=== PATIENT | male | born 1970 | race Caucasian/White ===

== ENCOUNTER 2022-04-30 10:05 | Observation (INO) ==
[2022-04-30] MEDS ORDERED: NITROGLYCERIN 2% OINTMENT 30GM TUBE EXT ONE (10:33)
[2022-04-30] MEDS ORDERED: ASPIRIN 81 MG CHEW PO STA (10:33)
--- NOTE | 2022-04-30 10:37 | Emergency Department Note ---
Impression & Plan Unstable angina ED Provider Note Name: KAZ MARTINEZ Age: 51 Sex: M Arrives Via: Walk-In Informant: Patient ED Provider: Jaun Suazo MD Chief Complaint: Chest pain Impression: As per impressions above Medical Decision Making: Pleasant 51-year-old gentleman with a history of hypertension, hyperlipidemia, anxiety and CAD with previous stenting. He arrives with intermittent episodic right chest pain radiating to his right shoulder similar to previous ID. No associated exertional component or other symptoms. No concerning findings for PE or dissection at this time. EKG and troponin initially okay. He was given aspirin as well as nitro paste was placed. Discussed with hospitalist and cardiology and they will evaluate further for further management. Will defer heparin management to their team. Patient does deny any recent bleeding, bruising, headaches, epigastric pain. Prior Medical Record and Triage/Nursing Notes reviewed by Me Additional history obtained from chart Differentials:Cardiac ischemia, aortic dissection, pulmonary embolism, pneumothorax, pneumonia, pericarditis, myocarditis, esophageal rupture, GERD, cholecystitis, pancreatitis, musculoskeletal, as well as other pathologies. Vital Signs: reviewed and remarkable for no significant abnormalities Interventions: Aspirin 324 mg p.o., sublingual nitroglycerin Labs:Reviewed and remarkable for no significant abnormalities Imagin view chest x-ray no acute findings per my evaluation EKG:Per My Interpretation: Indication Chest pain: NSR 72 bpm, qtc 400. No Ectopy. No Ischemia. EKG available Cardiac/Tele Monitoring: Cardiac Monitoring: An Order was placed for continuous cardiac monitoring. The monitor shows a rate of 70 with a normal sinus rhythm. Consults:Dr Adeel SHIPMAN Hospitalist, Dr Jordan SHIPMAN Cardiology Plan: Disposition:Hospitalization. Condition: Good History of Present Illness: 51-year-old gentleman arrives for evaluation of chest pain. Patient notes last 3 days stuttering right upper chest discomfort. States it is pressure-like. Radiates to his right shoulder. No pain with movement. States initially it actually woke him from sleep. He took nitro and pain goes away. He had another episode this morning took nitro and the pain went away. He called his auto porter who advised to come to the ER. Patient notes he does get short of breath and some chest discomfort with exertion recently. He is usually quite active and does not have concerning symptoms. Denies any falls, trauma, injuries. Denies any syncope, nausea, vomiting, pal pitations, anna pain, back pain or other concerning signs or symptoms. He has had no leg swelling or calf pain. No history of DVT/PE. Prior to arrival he took 81 mg aspirin, lisinopril, nitro tab. Patient has a history of ID with multiple stents. Patient states this is not like his typical reflux symptoms. ROS: See above HPI for pertinent positives & negatives. A total of 10 systems reviewed and were otherwise negative. 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 EYES: No scleral icterus, unremarkable pupils. ENT: Mucous membranes moist, no nasal congestion. NECK: No masses appreciated, nomeningismus, trachea is midline. RESPIRATORY: No dyspnea. Clear to auscultation and equal bilaterally. No wheeze, no rhonchi. CARDIOVASCULAR: Regular rate and rhythm.No murmurs, rubs, gallops appreciated. GASTROINTESTINAL: Abdomen soft, non-tender, no peritonitis.Bowel sounds positive.No masses appreciated. BACK: No midline tenderness, no CVA tenderness EXTREMITIES: Normal motion all extremities, no cyanosis, no edema. NEUROLOGIC: Alert and oriented, no acute motor or sensory deficits, no focal weakness, cranial nerves grossly intact. SKIN: No rash, no jaundice, no diaphoresis. PSYCH: Appropriate GCS: 15 ED Course: Times/Reassessments: Is feeling better after sublingual nitro. Agreeable to hospitalization Jaun Suazo MD Past Med/Surg History Medical History Angina pectoris Anxiety disorder Asthma without status asthmaticus Atherosclerotic heart disease of [place] coronary artery with other forms of angina pectoris Chest pain Gout Hyperlipidemia Indigestion Subsequent ST elevation (STEMI) myocardial infarction of inferior wall Surgical History History of cardiac cath History of orthopedic surgery Family History Father Suicide Mother Stroke Social History Smoking Status: Never smoker Tobacco Type: Smokeless Tobacco (Dip or Chew) Hx Alcohol Use: No Hx Substance Use: No Preferred Language: Polish Communication Ability: Effective Densitometer Reader Required: No Beliefs That Will Affect Care: None Current Living Situation: Spouse Other Information That Helps Us Care for You: No Feels Safe at Home: Yes Safety Concerns: Feels Safe At This Time Assistive Devices: Glasses Allergies Allergies Allergy/AdvReac Type Severity Reaction Status Date / Time No Known Allergies Allergy Verified 07/09/21 14:24 Home Meds Home Medications Medication Instructions Recorded Confirmed albuterol sulfate 90 mcg/actuation 2 puff inhalation Q4H PRN 12/11/20 07/09/21 aerosol inhaler lorazepam 0.5 mg tablet 0.5 mg PO BID PRN 12/11/20 07/09/21 nitroglycerin 0.4 mg sublingual 0.4 mg sublingual Q5M PRN 12/11/20 07/09/21 tablet tadalafil 10 mg tablet (Cialis) 10 mg PO DAILY PRN 12/11/20 12/12/20 venlafaxine 37.5 mg 37.5 mg PO DAILY 12/11/20 12/12/20 capsule,extended release 24 hr aspirin 81 mg tablet 81 mg PO DAILY 07/09/21 07/09/21 Previous Rx's Medication Instructions Recorded cetirizine 10 mg tablet 10 mg PO DAILY PRN allergy 07/09/21 symptoms #30 tabs clopidogrel 75 mg tablet 75 mg PO DAILY #90 tabs 07/09/21 isosorbide mononitrate 30 mg 30 mg PO DAILY #90 tabs 07/09/21 tablet,extended release 24 hr lisinopril 10 mg tablet 10 mg PO DAILY #90 tabs 07/09/21 rosuvastatin 20 mg tablet 20 mg PO DAILY #90 tabs 07/09/21 pantoprazole 40 mg tablet,delayed 40 mg PO DAILY #90 tabs 08/15/21 release Results & Data (ED) Vital Signs Vital Signs - 24 hr 04/30/22 10:09 04/30/22 10:25 04/30/22 10:50 Temperature 36.6 C Temperature Source Temporal Artery Scan Pulse Rate 81 Pulse Rate [Apical] 76 71 Respiratory Rate 18 18 18 Respiratory Effort / Characteristics Non-Labored Non-Labored Spontaneous Non-Labored Spontaneous Respiratory Depth Normal Normal Normal Blood Pressure 153/84 H Blood Pressure [Left Arm] 149/74 H 124/80 Blood Pressure Mean 107 Blood Pressure Mean [Left Arm] 99 94 Blood Pressure Position Sitting Pulse Oximetry 94 96 96 Oxygen Delivery Method Room Air Room Air Room Air Sepsis Recent Fever Within 48 Hours No Sepsis New/Unexplained Change in Mental Status No Sepsis Action Taken by Nursing No Action Required 04/30/22 12:05 Temperature Temperature Source Pulse Rate Pulse Rate [Apical] 68 Respiratory Rate 16 Respiratory Effort / Characteristics Respiratory Depth Blood Pressure Blood Pressure [Left Arm] 123/67 Blood Pressure Mean Blood Pressure Mean [Left Arm] 85 Blood Pressure Position Pulse Oximetry 95 Oxygen Delivery Method Sepsis Recent Fever Within 48 Hours Sepsis New/Unexplained Change in Mental Status Sepsis Action Taken by Nursing Laboratory Data Result diagrams: 04/30/22 10:24 04/30/22 10:24 Lab Results 04/30/22 04/30/22 04/30/22 Range/Units 10:24 10:24 12:50 WBC 7.43 (4.8-10.8) K/ul RBC 4.66 (4.63-6.08) M/uL Hgb 14.4 (14.0-18.0) g/dl Hct 41.8 (40.1-51.0) % MCV 89.7 (80.0-100.0) fL MCH 30.9 (25.0-34.0) pg MCHC 34.4 (32.0-36.0) g/dL RDW Std Deviation 42.8 (36.4-46.3) fL RDW Coeff of Neha 13.1 (11.5-14.5) % Plt Count 212 (130-400) K/uL MPV 10.1 (9.4-12.4) fL Immature Gran % (Auto) 0.5 % Neut % (Auto) 65.9 % Lymph % (Auto) 22.5 % Cocke % (Auto) 9.0 % Eos % (Auto) 1.6 % Baso % (Auto) 0.5 % Neut # (Auto) 4.89 (1.4-6.5) K/uL Lymph # (Auto) 1.67 (1.2-3.4) K/uL Cocke # (Auto) 0.67 (0.24-0.82) K/uL Eos # (Auto) 0.12 (0-0.50) K/uL Baso # (Auto) 0.04 (0-0.2) K/uL Immature Gran # (Auto) 0.04 H (0.00-0.02) K/uL Sodium 140 (136-145) mmol/L Potassium 3.9 (3.5-5.1) mmol/L Chloride 105 (98-107) mmol/L Carbon Dioxide 27 (21-32) mmol/L Anion Gap 8 (3-11) BUN 13 (6-23) mg/dl Creatinine 0.75 (0.6-1.4) mg/dl Est Cr Clr Drug Dosing 137.8 ml/min Est GFR ( Amer) 121.4 ml/min Est GFR (Non-Af Amer) 104.7 ml/min BUN/Creatinine Ratio 17.3 (10-20) Glucose 132 H (70-99(Fasting)) mg/dl Calcium 8.9 (8.5-10.1) mg/dl Total Bilirubin 0.6 (0.2-1.0) mg/dl Direct Bilirubin 0.1 (0-0.2) mg/dl AST 11 L (13-39) U/L ALT 15 (7-52) U/L Alkaline Phosphatase 60 (34-104) U/L Troponin I High Sens 7.0 (0-20) pg/ml Total Protein 6.4 (6.0-8.3) gm/dl Albumin 3.8 (3.4-5.0) gm/dl Lipase 23 (11-82) U/L SARS-CoV-2, RNA, NAAT NEGATIVE (NEGATIVE) Administered Medications Discontinued Medications Aspirin (Aspirin 81 Mg Chew) 324 mg PO NOW STA Stop: 04/30/22 10:34 Last Admin: 04/30/22 10:48 Dose: 324 mg Documented By: DON Nitroglycerin (Nitroglycerin 2% Ointment 30gm Tube) 1 inch EXT NOW ONE Stop: 04/30/22 10:34 Last Admin: 04/30/22 10:48 Dose: 1 inch Documented By: DON Imaging Data Radiologist's Impression: Chest X-Ray 04/30/22 10:33 SINGLE VIEW CHEST CLINICAL HISTORY: Atypical chest pain. FINDINGS: An AP, portable, upright chest radiograph is obtained. No prior studies are available for comparison at the time of dictation. The cardiomediastinal silhouette is top normal for projection. Peribronchial thick ening is observed. Mild atelectasis is noted at the lung bases. No focal airspace consolidation or large pleural effusion is identified. No pneumothorax is seen. The bony thorax is grossly intact. IMPRESSION: 1. Peribronchial thickening suggest bronchitis/reactive airway disease. Clinical correlation will be required. 2. No focal airspace consolidation or large pleural effusion is identified. ACT 112: Negative or not required by law. Electronically signed by: Basil Rivers M.D. 04/30/2022 10:52 AM Discharge Plan Visit Data Chief Complaint: Chest Pain Stated Complaint: CHEST PAINS ED Provider: Jaun Suazo Discharge Problem: Unstable angina Patient Disposition: Admitted As Inpatient Discharge Instructions Interventions: ED Discharge Assessment Last Done: 04/30/22 15:08
--- NOTE | 2022-04-30 10:53 | XRay Report ---
SINGLE VIEW CHEST CLINICAL HISTORY: Atypical chest pain. FINDINGS: An AP, portable, upright chest radiograph is obtained. No prior studies are available for c omparison at the time of dictation. The cardiomediastinal silhouette is top normal for projection. Pe ribronchial thickening is observed. Mild atelectasis is noted at the lung bases. No focal airspace co nsolidation or large pleural effusion is identified. No pneumothorax is seen. The bony thorax is pooja sly intact. IMPRESSION: 1. Peribronchial thickening suggest bronchitis/reactive airway disease. Clinical correlation will be required. 2. No focal airspace consolidation or large pleural effusion is identified. ACT 112: Negative or not required by law. Electronically signed by: Basil Rivers M.D. 04/30/2022 10:52 AM
[2022-04-30 10:55] LABS: Basophils # (auto) 0.04 K/uL (0-0.2); Basophils % (auto) 0.5 %; Eosinophils # (auto) 0.12 K/uL (0-0.50); Eosinophils % (auto) 1.6 %; Hematocrit (blood only) 41.8 % (40.1-51.0); Hemoglobin 14.4 g/dl (14.0-18.0); Immature Granulocytes # (auto) 0.04 K/uL (0.00-0.02); Immature Granulocytes % (auto) 0.5 %; Lymphocytes # (auto) 1.67 K/uL (1.2-3.4); Lymphocytes % (auto) 22.5 %; Mean Corpuscular Hemoglobin 30.9 pg (25.0-34.0); Mean Corpuscular Hgb Conc 34.4 g/dL (32.0-36.0); Mean Corpuscular Volume 89.7 fL (80.0-100.0); Mean Platelet Volume 10.1 fL (9.4-12.4); Monocytes # (auto) 0.67 K/uL (0.24-0.82); Neutrophils # (auto) 4.89 K/uL (1.4-6.5); Neutrophils % (auto) 65.9 %; Platelet Count 212 K/uL (130-400); RDW Coefficient of Variation 13.1 % (11.5-14.5); RDW Standard Deviation 42.8 fL (36.4-46.3); Red Blood Count 4.66 M/uL (4.63-6.08); White Blood Count 7.43 K/ul (4.8-10.8)
[2022-04-30 11:15] LABS: Albumin Level 3.8 gm/dl (3.4-5.0); BUN Creatinine Ratio 17.3 (10-20); Bilirubin Direct 0.1 mg/dl (0-0.2); Bilirubin,Total 0.6 mg/dl (0.2-1.0); Calcium 8.9 mg/dl (8.5-10.1); Creatinine Clr Calc Pharmacy 137.8 ml/min; Est GFR (African American) 121.4 ml/min; Est GFR (Non-African American) 104.7 ml/min; Potassium 3.9 mmol/L (3.5-5.1); Total Protein 6.4 gm/dl (6.0-8.3)
[2022-04-30] MEDS ORDERED: LORazepam 0.5 MG TAB PO PRN (13:05)
[2022-04-30] MEDS ORDERED: ALBUTEROL HFA 8 GM INHALER INH PRN (13:05)
[2022-04-30] MEDS ORDERED: CETIRIZINE HCL 10 MG TABLET PO PRN (13:05)
--- NOTE | 2022-04-30 13:28 | History & Physical Report ---
Date of Service April 30, 2022 Assessment & Plan (1) Unstable angina: Plan: Unstable angina in a 51 yo male with CADPlaced on heparin drip. consulted cardio Plan for cardiac cath in AM Patient will be NPO after midnight (2) Chest pain: Plan: as above. (3) Hypercholesterolemia: Plan: resume home meds: rosuvastatin (4) CAD (coronary artery disease): Plan: resume home meds: plavix, asa (5) Hypertension: Plan: resume lisinopril (6) Anxiety disorder: Plan: resume home meds History of Present Illness Chief Complaint: chest pain Primary Care Provider: Navin Winter PA-C This is a pleasant 51 yo male with PMH of CAD with stents placed back in 2017, HTN, Hyperlipidemia. Patient reports having chest pain intermittently the past 2 nights. Chest pain was left sided, pressure like in nature non radiating. Occurred at rest and improved with Nitro Prior to this patient has been having intermittent SOB on exertion, that has been gradually worsening. Patient states that this past week he was cutting firewood, and this made him lose his breath (which isn't normal for him). Today, walking to the care made him SOB. GIven his symptoms, he called his cariodlogist, Dr. Mahajan who recommmended him to go to ER Allergies Allergy/AdvReac Type Severity Reaction Status Date / Time No Known Allergies Allergy Verified 07/09/21 14:24 Home Medications Medication Instructions Recorded Confirmed Type albuterol sulfate 90 mcg/actuation 2 puff inhalation Q4H PRN 12/11/20 07/09/21 History aerosol inhaler lorazepam 0.5 mg tablet 0.5 mg PO BID PRN 12/11/20 07/09/21 History nitroglycerin 0.4 mg sublingual 0.4 mg sublingual Q5M PRN 12/11/20 07/09/21 History tablet tadalafil 10 mg tablet (Cialis) 10 mg PO DAILY PRN 12/11/20 12/12/20 History venlafaxine 37.5 mg 37.5 mg PO DAILY 12/11/20 12/12/20 History capsule,extended release 24 hr aspirin 81 mg tablet 81 mg PO DAILY 07/09/21 07/09/21 History cetirizine 10 mg tablet 10 mg PO DAILY PRN allergy 07/09/21 07/09/21 Rx symptoms #30 tabs clopidogrel 75 mg tablet 75 mg PO DAILY #90 tabs 07/09/21 07/09/21 Rx isosorbide mononitrate 30 mg 30 mg PO DAILY #90 tabs 07/09/21 07/09/21 Rx tablet,extended release 24 hr lisinopril 10 mg tablet 10 mg PO DAILY #90 tabs 07/09/21 07/09/21 Rx rosuvastatin 20 mg tablet 20 mg PO DAILY #90 tabs 07/09/21 07/09/21 Rx pantoprazole 40 mg tablet,delayed 40 mg PO DAILY #90 tabs 08/15/21 Rx release Past Med/Surg History Medical History Angina pectoris Anxiety disorder Asthma without status asthmaticus Atherosclerotic heart disease of [place] coronary artery with other forms of angina pectoris Chest pain Gout Hyperlipidemia Indigestion Subsequent ST elevation (STEMI) myocardial infarction of inferior wall Surgical History History of cardiac cath History of orthopedic surgery Family History Father Suicide Mother Stroke Social History Smoking Status: Never smoker Tobacco Type: Smokeless Tobacco (Dip or Chew) Hx Alcohol Use: No Hx Substance Use: No Preferred Language: Samoan Communication Ability: Effective Postal Transportation Clerk Required: No Beliefs That Will Affect Care: None Current Living Situation: Spouse Other Information That Helps Us Care for You: No Feels Safe at Home: Yes Safety Concerns: Feels Safe At This Time Assistive Devices: Glasses Review of Systems Constitutional: no fever and no body aches Eyes: no blind spots and no diplopia Ear, Nose, Mouth, Throat: no ear pain Respiratory: no cough Cardiovascular: no chest pain Gastrointestinal: no abdominal pain Genitourinary: no dysuria Musculoskeletal: no back pain Integumentary: no acne Neurologic: no gait abnormality Psychiatric: no behavioral changes Endocrine: + fatigue Hematologic / Lymphatic: no easy bleeding Allergy / Immunological: no GI upset with certain foods Physical Exam Constitutional: WD/WN, vitals as above Eyes: PERRL, conjunctivae normal, anicteric sclerae ENMT: external ear and nose normal, oropharynx normal Neck: trachea midline, no thyromegaly Respiratory: normal respiratory effort, lungs clear to auscultation Cardiovascular: RRR, no murmur, no edema Gastrointestinal (Abdomen): normal bowel sounds, soft, nontender, no hepatosplenomegaly Musculoskeletal: tenderness to palpation over anrerior right shoulder. Pain on abduction. Neurologic: PERRL, EOMI, accommodation nl, no face palsy, no dysarthria Psychiatric: A+Ox3, euthymic affect Results & Data Results & Data ([facility]) Vital Signs (Past 12 Hours) Vital Signs Temp Pulse Pulse Resp BP BP Pulse Ox 04/30/22 12:05 68 16 123/67 95 04/30/22 10:50 71 18 124/80 96 04/30/22 10:25 76 18 149/74 H 96 04/30/22 10:09 36.6 C 81 18 153/84 H 94 O2 Del Method 04/30/22 12:05 04/30/22 10:50 Room Air 04/30/22 10:25 Room Air 04/30/22 10:09 Room Air PG Care Time/CCT Total # of Minutes Spent Total Time Spent with Patient: Total time spent is greater than 50% in coordination of care (as documented) at patient's floor/unit and/or counseling patient: Coding Level of Care Code INT OBSERVATION CARE 70M LVL 3 Diagnoses Unstable angina I20.0 Chest pain R07.9 Hypercholesterolemia E78.00 CAD (coronary artery disease) I25.10 Hypertension I10 Anxiety disorder F41.9
--- NOTE | 2022-04-30 15:24 | Cardiology Consultation ---
Date of Consultation April 30, 2022 Assessment & Plan (1) Chest pain: (2) Dyspnea on exertion: (3) CAD (coronary artery disease): (4) Stented coronary artery: (5) Hypertension: (6) Anxiety disorder: Plan 51-year-old man with known coronary artery disease presents with initially exertional symptoms now occurring at rest. Symptoms are of a nature similar to those he experienced several years ago at the time of an inferior infarct. Fortunately, his initial troponin and ECG are unremarkable and he is pain-free currently. Would presume crescendo angina/acute coronary syndrome at this point and continue aspirin and clopidogrel, and heparin overnight, add low-dose beta-bloc ker and continue lisinopril. Could use topical nitrates overnight. Obtain ECG with any recurrent chest pain. Plan for cardiac catheterization in the morning, sooner if recurrent symptoms with ECG changes. Continue proton pump inhibitor, although reflux with esophageal spasm include also response to nitroglycerin, given his exertional symptoms as well as progressive dyspnea, gastroesophageal reflux disease as etiology for chest pain is at this point a diagnosis of exclusion. Patient is followed by Dr. Mahajan, he will be rounding tomorrow morning. History of Present Illness Reason for Consultation: Chest pain Requesting Physician: Burton Denis MD Attending Physician: Burton Denis MD History of Present Illness 51-year-old man with CAD (details below), hypertension, dyslipidemia who was admitted with recurrent chest pain in a crescendo pattern. Patient had an inferior wall myocardial infarction 2016 and received drug- eluting stents in the RCA and LAD, repeat catheterization in 2019 showed patent stents and no occlusive disease. He had done well since, but over the past month or so has been noting left precordial chest heaviness when he performs heavy activities such as chopping wood. More recently, he began to experience the same character of left chest discomfort at rest, including awakening him from sleep this morning with moderate severity pain (5/10). He does have a history of gastroesophageal reflux for which he takes a proton pump inhibitor, he notes that he had mostly attributed his chest discomfort to reflux at the time of his inferior infarct. He also notes that he has not experienced any actual "acid brash" or other reflux type symptoms in recent months. Several recent episodes of chest discomfort prompted him to take a sublingual nitroglycerin, he noted immediate relief of his symptoms. No epiphenomenon currently with chest pain. However, he does note his exercise tolerance is declined and he comes winded quite easily in recent weeks. At times, he has noted some lightheadedness, but he does not directly associated this with chest pain, rather feeling that it may be anxiety. He denies any subjective palpitations, presyncope, or syncope. Upon presentation to the ER this morning, his ECG showed an old inferior infarct but no acute ST changes and his initial troponin was negative. He did have mild discomfort and was given sublingual and topical nitroglycerin and noted immediate relief of his symptoms. A second troponin was also negative. At the time of my evaluation, he was no longer having chest pain and he felt well. Allergies Allergy/AdvReac Type Severity Reaction Status Date / Time No Known Allergies Allergy Verified 07/09/21 14:24 Home Medications Medication Instructions Recorded Confirmed Type albuterol sulfate 90 mcg/actuation 2 puff inhalation Q4H PRN 12/11/20 07/09/21 History aerosol inhaler lorazepam 0.5 mg tablet 0.5 mg PO BID PRN 12/11/20 07/09/21 History nitroglycerin 0.4 mg sublingual 0.4 mg sublingual Q5M PRN 12/11/20 07/09/21 History tablet tadalafil 10 mg tablet (Cialis) 10 mg PO DAILY PRN 12/11/20 12/12/20 History venlafaxine 37.5 mg 37.5 mg PO DAILY 12/11/20 12/12/20 History capsule,extended release 24 hr aspirin 81 mg tablet 81 mg PO DAILY 07/09/21 07/09/21 History cetirizine 10 mg tablet 10 mg PO DAILY PRN allergy 07/09/21 07/09/21 Rx symptoms #30 tabs clopidogrel 75 mg tablet 75 mg PO DAILY #90 tabs 07/09/21 07/09/21 Rx isosorbide mononitrate 30 mg 30 mg PO DAILY #90 tabs 07/09/21 07/09/21 Rx tablet,extended release 24 hr lisinopril 10 mg tablet 10 mg PO DAILY #90 tabs 07/09/21 07/09/21 Rx rosuvastatin 20 mg tablet 20 mg PO DAILY #90 tabs 07/09/21 07/09/21 Rx pantoprazole 40 mg tablet,delayed 40 mg PO DAILY #90 tabs 08/15/21 Rx release Patient History Medical History Angina pectoris Anxiety disorder Asthma without status asthmaticus Atherosclerotic heart disease of [place] coronary artery with other forms of angina pectoris Chest pain Gout Hyperlipidemia Indigestion Subsequent ST elevation (STEMI) myocardial infarction of inferior wall Surgical History History of cardiac cath History of orthopedic surgery Family History Father Suicide Mother Stroke Social History Smoking Status: Never smoker Tobacco Type: Smokeless Tobacco (Dip or Chew) Hx Alcohol Use: No Hx Substance Use: No Preferred Language: [place]ian Communication Ability: Effective Editor Publications Required: No Beliefs That Will Affect Care: None Current Living Situation: Spouse Other Information That Helps Us Care for You: No Feels Safe at Home: Yes Safety Concerns: Feels Safe At This Time Assistive Devices: Glasses Physical Exam Physical Exam: Adult white male in no distress. Normotensive. Pulse 86 bpm and regular. Skin: no ecchymoses or generalized lesions. HEENT: unremarkable. Neck: no JVD or carotid bruits. Lungs: clear bilaterally. Cardiac: regular rhythm, 2/6 apical holosystolic murmur rating to the axilla, no diastolic murmur, rub or gallop. Abdomen: benign. Extremities: no edema, pulses intact. Neurologic: normal affect and conversation, nonfocal. Results & Data ([facility]) Vital Signs (Past 12 Hours) Vital Signs Temp Pulse Pulse Resp BP BP Pulse Ox 04/30/22 14:00 86 20 134/74 99 04/30/22 12:05 68 16 123/67 95 04/30/22 10:50 71 18 124/80 96 04/30/22 10:25 76 18 149/74 H 96 04/30/22 10:09 97.9 F 81 18 153/84 H 94 O2 Del Method 04/30/22 14:00 Room Air 04/30/22 12:05 04/30/22 10:50 Room Air 04/30/22 10:25 Room Air 04/30/22 10:09 Room Air Laboratory Results CBC normal. Normal electrolytes, BUN 13, creatinine 0.75. High-sensitivity troponin of 7.0 and 6.2. Diagnostic Findings ECG showed sinus rhythm at 72 bpm with an old inferior infarct and no acute ST abnormalities. Chest x-ray showed peribronchial thickening suggesting bronchitis/reactive airway disease, otherwise unremarkable. PG Care Time/CCT Total # of Minutes Spent Total Time Spent with Patient: Total time spent is greater than 50% in coordination of care (as documented) at patient's floor/unit and/or counseling patient: Coding Level of Care Code 41116 Inpt Consult Level 4 Diagnoses Chest pain R07.9 Dyspnea on exertion R06.00 CAD (coronary artery disease) I25.10 Stented coronary artery Z95.5 Hypertension I10 Anxiety disorder F41.9
--- NOTE | 2022-04-30 16:01 | Electrocardiogram Report ---
Test Reason : Blood Pressure : / mmHG Vent. Rate : 072 BPM Atrial Rate : 072 BPM P-R Int : 178 ms QRS Dur : 088 ms QT Int : 366 ms P-R-T Axes : 053 009 009 degrees QTc Int : 400 ms Normal sinus rhythm Old Inferior infarct Abnormal ECG No previous ECGs available Confirmed by Alberto Ortega ([id number]) on 04/30/2022 4:01:22 PM Referred By: REFERRED SELF Confirmed By:Alberto Ortega
--- NOTE | 2022-04-30 16:35 | XCELERA ---
[id number]
[2022-05-01 07:24] LABS: BUN Creatinine Ratio 20.5 (10-20); Creatinine Clr Calc Pharmacy 140.2 ml/min; Est GFR (African American) 122.7 ml/min; Est GFR (Non-African American) 105.9 ml/min; Potassium 4.2 mmol/L (3.5-5.1)
[2022-05-01 07:29] LABS: Troponin I High Sensitivity 6.1 pg/ml (0-20)
[2022-05-01] MEDS ORDERED: VENLAFAXINE HCL XR 37.5 MG CAPXR PO SCH (09:00)
[2022-05-01] MEDS ORDERED: lisinopril 10 MG TAB PO SCH (09:00)
[2022-05-01] MEDS ORDERED: ISOSORBIDE MONO EXTENDED REL 30 MG TABCR PO SCH (09:00)
[2022-05-01] MEDS ORDERED: ROSUVASTATIN CALCIUM 20 MG TAB PO SCH (09:00)
[2022-05-01] MEDS ORDERED: PANTOprazole 40 MG TAB PO SCH (09:00)
[2022-05-01] MEDS ORDERED: ASPIRIN 81 MG ECTAB PO SCH (09:00)
[2022-05-01] MEDS ORDERED: CLOPIDOGREL BISULFATE 75 MG TAB PO SCH (09:00)
[2022-05-01 09:58] LABS: Hematocrit (blood only) 44.2 % (40.1-51.0); Mean Corpuscular Hemoglobin 31.3 pg (25.0-34.0); Mean Corpuscular Hgb Conc 33.9 g/dL (32.0-36.0); Mean Corpuscular Volume 92.3 fL (80.0-100.0); Platelet Count 200 K/uL (130-400); RDW Standard Deviation 44.3 fL (36.4-46.3); Red Blood Count 4.79 M/uL (4.63-6.08); White Blood Count 7.67 K/ul (4.8-10.8)
--- NOTE | 2022-05-01 10:46 | Pre Anesthesia Assessment ---
Date of Service May 01, 2022 Pre Sedation Assessment Vital Signs Temp Pulse Pulse Resp BP Pulse Ox O2 Del Method 05/01/22 10:20 68 18 108/71 98 Room Air 05/01/22 09:04 64 05/01/22 08:06 Room Air 05/01/22 06:45 36.6 C 59 L 20 117/72 97 Room Air 05/01/22 02:39 36.4 C L 64 18 137/68 98 Room Air 04/30/22 23:00 70 04/30/22 23:00 36.7 C 62 20 141/73 H 98 Room Air 04/30/22 19:00 36.8 C 63 16 121/64 96 Room Air 04/30/22 15:34 67 04/30/22 15:15 36.7 C 72 20 156/85 H 97 Room Air 04/30/22 14:00 86 20 134/74 99 Room Air 04/30/22 12:05 68 16 123/67 95 04/30/22 10:50 71 18 124/80 96 Room Air Cardiovascular RRR, no murmur, no edema Pre-Sedation Airway Assessment Smoking Status: Never smoker Short, Thick Neck: No Thyromental Distance: > or= 3.5 Finger Breadths Oral Cavity: + WNL Mallampati Class: II ASA: ASA3 NPO Status Date of Last Intake of Fluids: 04/30/22 Time of Last Intake of Fluids: 20:00 Date of Last Intake of Solid Food: 04/30/22 Time of Last Intake of Solid Foods: 20:00 Notes The planned sedation has been discussed with the patient. Informed Consent was obtained. I have identified the patient, determined the appropriateness of sedation and have assessed the patient immediately prior to the procedure. All medicine(s) and interventions are by my order.
[2022-05-01] MEDS ORDERED: fentaNYL citrate 100 MCG/2 ML VIAL ONE (10:48)
[2022-05-01] MEDS ORDERED: HEPARIN (PORCINE) 1000 UNIT/ML 10 ML (CATH LAB USE ONLY) ONE (10:48)
[2022-05-01] MEDS ORDERED: niCARdipine HCL INJ 2.5 MG/ML 10 ML AMP ONE (10:48)
[2022-05-01] MEDS ORDERED: MIDAZOLAM HCL 1 MG/ML 2ML VIAL ONE ×2 (10:49→11:07)
[2022-05-01] MEDS ORDERED: NITROGLYCERIN/D5W 100MCG/ML 20ML SYR ONE (10:49)
[2022-05-01] MEDS ORDERED: diphenhydrAMINE 50 MG/ML VIAL ONE (11:13)
--- NOTE | 2022-05-01 12:01 | Post Anesthesia Assessment ---
Date of Service May 01, 2022 Post Sedation Assessment Vital Signs Temp Pulse Pulse Resp BP Pulse Ox O2 Del Method 05/01/22 11:45 67 18 115/71 95 Room Air 05/01/22 11:30 63 18 117/69 95 Room Air 05/01/22 10:20 68 18 108/71 98 Room Air 05/01/22 09:04 64 05/01/22 08:06 Room Air 05/01/22 06:45 36.6 C 59 L 20 117/72 97 Room Air 05/01/22 02:39 36.4 C L 64 18 137/68 98 Room Air 04/30/22 23:00 70 04/30/22 23:00 36.7 C 62 20 141/73 H 98 Room Air 04/30/22 19:00 36.8 C 63 16 121/64 96 Room Air 04/30/22 15:34 67 04/30/22 15:15 36.7 C 72 20 156/85 H 97 Room Air 04/30/22 14:00 86 20 134/74 99 Room Air 04/30/22 12:05 68 16 123/67 95 Recovery Score Activity: Moves 4 extremities Respiration: Deep Breath/Cough Circulation: +/-20% PreAnes Value Consciousness: Fully Awake Oxygen Saturation: > 92% On Room Air Post Anesthesia Score: 10 Discharge Sedation Level of Care: Phase I Post Sedation Plan On clinical assessment, the patient appears to have tolerated the sedation without complications. Patient is recovering as anticipated. Patient will continue to be monitored by nursing and may be discharged when sedation discharge criteria are met per below protocol. Upon Completions of procedure up to 15 minutes continue every 5 minute vital signs and the P.A.R. score; then discharge to a Phase I or Fast Track to Phase II per the following guidelines: * Discharge Patient to appropriate Phase II area if PAR is 8 or greater or return to pre- procedure baseline. The post - procedure orders will be as directed. * If PAR score is less than 8 or not return to pre-procedure baseline then patient will follow Phase I monitoring till PAR is reached for Phase II. The Phase I may be done in procedure room or may call to secure a Phase I area. * If naloxone or flumazenil are used for reversal, hold in Phase I for continued monitoring from when last reversal dose was given for a minimum of 60 minutes or longer pending the nurse and/or physician discretion of patient condition before discharge to Phase II. Please call the Sedation Physician to re-evaluate and complete post-note for discharge to Phase II area. Do NOT discharge from procedure sedation or Phase 1 until post- sedation evaluation note is complete by procedure /sedation MD Sedation Discharge Instructions to be given to the patient at discharge to home. [facility] Procedure Codes (Charges) Indication for Procedure Indication for procedure: unstable angina Sedation/Anesthesia Procedure 1: Total Sedation Time (minutes): 15
--- NOTE | 2022-05-01 12:06 | Cardiac Catheterization ---
[facility] Data: [place] [facility] Cardiac Status Clinical evaluation leading to the procedure CAD Presenation: Unstable angina Anginal Classification: CCS III Heart Failure: No Cardiogenic Shock within 24 Hours: No Cardiac Arrest within 24 Hours: No Imaging Studies Past 6 Months: No Stress Studies Past 6 Months: No Coronary Anatomy Left Main (% Stenosis): Normal LAD (% Stenosis): Proximal (Prior stent patent) D1 (% Stenosis): Normal Circumflex (% Stenosis): Normal OM1 (% Stenosis): Normal OM2 (% Stenosis): Normal RCA (% Stenosis): Ostial (30%), Proximal (Stent patent) and Mid (Stent patent) R PDA (% Stenosis): Normal R PL1 (% Stenosis): Normal Diagnostic Physicians Name: Fredrick Bai MD, PhD Closure Device Percutaneous Entry Location: Radial Recommendations: Medical Therapy and/or Counseling Cardiac Cath Procedure Full Procedure Date May 01, 2022 Pre-Procedure Diagnosis Pre-Procedure Diagnosis: Acute Coronary Syndrome AUC Score AUC Score: 07 Post-Procedure Diagnosis Post-Procedure Diagnosis: Mild CAD Procedure(s) Performed Procedure(s) Performed: Coronary Angiography and Left Heart Cath Senior Quality Methods Specialist Fredrick Bai MD, PhD Estimated Blood Loss Estimated Blood Loss: <5ml Medication(s) Medication(s): Diphenhydramine, Fentanyl, Heparin, Lidocaine 1%, Nicardipine, Nitroglycerin and Versed Summary of Findings The patient was brought to the cardiac catheterization suite where he was shaved and prepped in a sterile fashion. Sedated using IV Versed, fentanyl, and Benadryl. Soft tissues of the right wrist were anesthetized using 2 mL of 1% Xylocaine. Right radial artery was accessed with a modified Seldinger technique and a 6 Portuguese radial artery glide sheath was placed. Patient was provided anticoagulation with IV heparin and antispasmodics including nicardipine and nitroglycerin. All catheters were advanced and exchanged over a 0.035 J-tip wire. Left coronary angiography in orthogonal views with a 5 Portuguese TIGR diagnostic catheter. Right coronary angiography in orthogonal views with a 5 Portuguese TIGR diagnostic catheter. Left heart cath was performed with a 5 Portuguese TIGR diagnostic catheter. Diagnostic catheter was removed. Radial artery sheath was removed. Hemostasis was obtained using a TR band. Patient was hemodynamically stable and asymptomatic. He was [facility] to the [facility]. FINDINGS: LMT: Large-caliber vessel which bifurcates into the LAD and left circumflex. No angiographically evident disease. LAD: Large caliber and transapical. Early proximal segment with mild luminal irregularities. Then, there was a stent extending from the proximal through the early mid vessel. Stent is widely patent. The [place] mid and distal LAD have no more than mild luminal irregularities. There is a large caliber first diagonal which has no angiographically significant disease. Several large septal branches. LCx: Large caliber and nondominant. Proximal and mid AV groove vessel have no more than mild luminal irregularities. Provide a small OM1 followed by a large caliber branching OM 2. This has mild luminal irregularities. The distal AV groove circumflex begins to taper and terminates distally. No angiographically significant disease. RCA: Large caliber and dominant vessel. Ostial to proximal segment has mild less than 30% stenosis. Then, the proximal segment has a stent which extends through the mid vessel. There is less than 10% in-stent restenosis in this stent train. The distal RCA bifurcates into the PDA and posterolateral branch. Each of these vessels are large and have no more than mild luminal irregularities. Hemodynamics Rest Ao:: 111/83 mmHg, mean 90 mmHg Final Ao: 119/85 mmHg, mean 102 mmHg LV: 105/13 mmHg, LVEDP 14 mmHg Recommendations Recommendations: Medical Therapy and/or Counseling Radiation Exposure (mGy) 729 mGy, fluoroscopy time 1.6 minutes Contrast (mls) 40 mL Anesthesia 4 mg IV Versed, 75 mcg IV fentanyl, 25 mg IV Benadryl Procedural Complication(s) None Disposition Recovery Room\PACU I attest to the content of the Intraoperative Record and any orders documented therein. Any exceptions are noted below. [facility] Card Cath Procedure Codes Cardiac Catheterization Procedure 1: Cardiovascular Cath Procedures: 51696 Coronaries and LHC (+/-LV) Moderate Sedation Procedure 1: Sedation/Anesthesia: 22582 Mod Sedation by the same physician;Init15 Min Child Age 5 & Up PG Care Time/CCT Total # of Minutes Spent Total Time Spent with Patient: Total time spent is greater than 50% in coordination of care (as documented) at patient's floor/unit and/or counseling patient:
--- NOTE | 2022-05-01 14:12 | Hospitalist Progress Note ---
Date of Service May 01, 2022 Assessment & Plan (1) Unstable angina: Plan: Unstable angina in a 51 yo male with CADP laced on heparin drip. - Hisotryof RCA with XOCHITL and LAD XOCHITL 2016- evalauted today via cardiac cath - continue isosorbide, as well as ACei, statin, Plavix, and asa - was previously on metoprolol however had some dyspnea with this and was trialed off of this 07/29 - Cardiology consultation and evaluation apprecaited As Coronary agniography was clear- ddx remains: GERD, Anxiety, or occupational exposure (2) Asthma: Plan: History of asthma, but not on any inhalers - admission CXR with inflammation vs. bronchitis- patient states he normally gets like this during season change - He states he does take OTC zyrtec - continue SHERLYN upon discharge - if above symptoms persist consider pulmonary for PFTS and eval (3) Hypercholesterolemia: Plan: resume home meds: rosuvastatin (4) CAD (coronary artery disease): Plan: resume home meds: plavix, asa (5) Hypertension: Plan: resume lisinopril (6) Anxiety disorder: Plan: resume home meds Admission and Anticipated Discharge Date Admission Date: April 30, 2022 Subjective Patient is HD #1 following admission for angina that was relieved with NTG on admission day. He has had negative HscTNI and ECG without dynamic changes. Patient underwent cardiac cancerization on 05/01/22 that was without significant stenosis or lesion to be intervened on. The patient was transferred back to his room. Heparin infusion has been discontinued. His ECHO was with EF 55-60% with small area of inferobasal hypokinesis and normal valves. His chest pain that he was having was right sided and at times in the center of his chest and was more like a pressure. This at times has been with dyspnea. He denies any other feelings of illness and/or fatigue. He feels well after cardiac cath and without chest pain. If his Radial Artery site does not bleed and without symptoms he can discharge today. Patient does not smoke, but does chew tobaccoo, works as a drill tractor crane operator and states he does where occupational mask when he is drilling when it is lorna or dirty. Review of Systems Review of Systems: REVIEW OF SYSTEMS: Constitutional: No fever, sweats or chills Eyes: No diplopia, no worsening or blurred vision ENT: normal hearing, no trouble swallowing Respiratory: No cough, sputum, dyspnea at rest or on exertion Cardiovascular:(+) chest pressure (resolved), tightness or palpitations Abdomen: No pain, nausea, vomiting, diarrhea or constipation Musculoskeletal: (+) right shoulder chronic pain, No joint pain, calf pain, swelling Neurologic: No weakness, numbness/tingling, or balance problems Psychiatric: No anxiety or depression Skin: No rash or itch Physical Exam Physical Exam: PHYSICAL EXAM: General: awake, alert, no apparent distress Head: Normocephalic, atraumatic ENT: PERRL, EOMI, no pharyngeal exudate, mucous membranes moist Neuro: AAO x 3, speech clear and appropriate, strength intact bilaterally 5/5, sensation intact and equal all extremities and dermatomes, no pronator drift Chest: equal rise and fall of the chest, no accessory muscle use, no heaves or thrills, Clear to auscultation, on room air, Cardiac: Regular rate and rhythm, telemetry reviewed, skin warm dry, cap refill <3 seconds, peripheral pulses +2 no JVD, no murmur, right radial compression device on GI: NABS x 4 quadrants, soft, nontender to palpation, no rebound, guarding or tenderness : Spontaneously voiding, no pain, no CVA tenderness, Extremities: Normal inspection, no peripheral edema or erythema, calfs nontender to palpation Psych: Normal mood and affect Skin: no rash or erythema Results & Data Results & Data ([facility]) Vital Signs (Past 12 Hours) Vital Signs Temp Pulse Pulse Pulse Resp BP Pulse Ox 05/01/22 13:30 36.8 C 69 20 128/70 94 05/01/22 13:00 36.7 C 67 20 102/63 95 05/01/22 12:30 36.7 C 69 20 114/69 97 05/01/22 12:15 83 18 117/68 99 05/01/22 12:03 36.3 C L 64 18 110/69 96 05/01/22 11:45 67 18 115/71 95 05/01/22 11:30 63 18 117/69 95 05/01/22 10:20 68 18 108/71 98 05/01/22 09:04 64 05/01/22 08:06 05/01/22 06:45 36.6 C 59 L 20 117/72 97 05/01/22 02:39 36.4 C L 64 18 137/68 98 O2 Del Method 05/01/22 13:30 Room Air 05/01/22 13:00 Room Air 05/01/22 12:30 Room Air 05/01/22 12:15 Room Air 05/01/22 12:03 Room Air 05/01/22 11:45 Room Air 05/01/22 11:30 Room Air 05/01/22 10:20 Room Air 05/01/22 09:04 05/01/22 08:06 Room Air 05/01/22 06:45 Room Air 05/01/22 02:39 Room Air Laboratory Results Laboratory Results - last 24 hr 04/30/22 04/30/22 05/01/22 13:57 20:58 05:43 WBC RBC Hgb Hct MCV MCH MCHC RDW Std Deviation RDW Coeff of Neha Plt Count MPV Sodium 137 Potassium 4.2 Chloride 104 Carbon Dioxide 28 Anion Gap 5 BUN 15 Creatinine 0.73 Est Cr Clr Drug Dosing 140.2 Est GFR ( Amer) 122.7 Est GFR (Non-Af Amer) 105.9 BUN/Creatinine Ratio 20.5 H Glucose 102 H Calcium 9.0 Troponin I High Sens 6.2 6.5 6.1 Lipase 21 05/01/22 05/01/22 09:17 09:17 WBC 7.67 RBC 4.79 Hgb 15.0 Hct 44.2 MCV 92.3 MCH 31.3 MCHC 33.9 RDW Std Deviation 44.3 RDW Coeff of Neha 13.0 Plt Count 200 MPV 10.0 Sodium Potassium Chloride Carbon Dioxide Anion Gap BUN Creatinine Est Cr Clr Drug Dosing Est GFR ( Amer) Est GFR (Non-Af Amer) BUN/Creatinine Ratio Glucose Calcium Troponin I High Sens 5.1 Lipase Diagnostic Findings Chest X-Ray 04/30/22 10:33 SINGLE VIEW CHEST CLINICAL HISTORY: Atypical chest pain. FINDINGS: An AP, portable, upright chest radiograph is obtained. No prior studies are available for comparison at the time of dictation. The cardiomediastinal silhouette is top normal for projection. Peribronchial thickening is observed. Mild atelectasis is noted at the lung bases. No focal airspace consolidation or large pleural effusion is identified. No pneumothorax is seen. The bony thorax is grossly intact. IMPRESSION: 1. Peribronchial thickening suggest bronchitis/reactive airway disease. Clinical correlation will be required. 2. No focal airspace consolidation or large pleural effusion is identified. ACT 112: Negative or not required by law. Electronically signed by: Basil Rivers M.D. 04/30/2022 10:52 AM Medications Administered Home Medications albuterol sulfate 90 mcg/actuation aerosol inhaler 2 puff inhalation Q4H PRN 12/11/20 [History Confirmed 07/09/21] lorazepam 0.5 mg tablet 0.5 mg PO BID PRN 12/11/20 [History Confirmed 07/09/21] nitroglycerin 0.4 mg sublingual tablet 0.4 mg sublingual Q5M PRN 12/11/20 [History Confirmed 07/09/21] tadalafil 10 mg tablet (Cialis) 10 mg PO DAILY PRN 12/11/20 [History Confirmed 12/12/20] venlafaxine 37.5 mg capsule,extended release 24 hr 37.5 mg PO DAILY 12/11/20 [History Confirmed 12/12/20] aspirin 81 mg tablet 81 mg PO DAILY 07/09/21 [History Confirmed 07/09/21] cetirizine 10 mg tablet 10 mg PO DAILY PRN allergy symptoms #30 tabs 07/09/21 [Rx Confirmed 07/09/21] clopidogrel 75 mg tablet 75 mg PO DAILY #90 tabs 07/09/21 [Rx Confirmed 07/09/21] isosorbide mononitrate 30 mg tablet,extended release 24 hr 30 mg PO DAILY #90 tabs 07/09/21 [Rx Confirmed 07/09/21] lisinopril 10 mg tablet 10 mg PO DAILY #90 tabs 07/09/21 [Rx Confirmed 07/09/21] rosuvastatin 20 mg tablet 20 mg PO DAILY #90 tabs 07/09/21 [Rx Confirmed 07/09/21] pantoprazole 40 mg tablet,delayed release 40 mg PO DAILY #90 tabs 08/15/21 [Rx] Active Medications Albuterol (Albuterol Hfa 8 Gm Inhaler) 2 puffs INH Q4H PRN PRN Reason: Shortness Of Breath Stop: 05/30/22 13:04 Aspirin (Aspirin 81 Mg Ectab) 81 mg PO DAILY CORINNA Stop: 05/31/22 08:59 Last Admin: 05/01/22 08:28 Dose: 81 mg Cetirizine HCl (Cetirizine Hcl 10 Mg Tablet) 10 mg PO DAILY PRN PRN Reason: allergy symptoms Stop: 05/30/22 13:04 Clopidogrel Bisulfate (Clopidogrel Bisulfate 75 Mg Tab) 75 mg PO DAILY CORINNA Stop: 05/31/22 08:59 Last Admin: 05/01/22 08:28 Dose: 75 mg Isosorbide Mononitrate (Isosorbide [place] Extended Rel 30 Mg Tabcr) 30 mg PO DAILY CORINNA Stop: 05/31/22 08:59 Last Admin: 05/01/22 08:29 Dose: 30 mg Lisinopril (Lisinopril 10 Mg Tab) 10 mg PO DAILY CORINNA Stop: 05/31/22 08:59 Last Admin: 05/01/22 08:29 Dose: 10 mg Lorazepam (Lorazepam 0.5 Mg Tab) 0.5 mg PO BID PRN PRN Reason: Anxiety Stop: 05/30/22 13:04 Pantoprazole Sodium (Pantoprazole 40 Mg Tab) 40 mg PO DAILY CORINNA Stop: 05/31/22 08:59 Last Admin: 05/01/22 08:28 Dose: 40 mg Rosuvastatin Calcium (Rosuvastatin Calcium 20 Mg Tab) 20 mg PO DAILY CORINNA Stop: 05/31/22 08:59 Last Admin: 05/01/22 08:29 Dose: 20 mg Venlafaxine HCl (Venlafaxine Hcl Xr 37.5 Mg Capxr) 37.5 mg PO DAILY [facility] Stop: 05/31/22 08:59 Last Admin: 05/01/22 08:29 Dose: 37.5 mg PG Care Time/CCT Total # of Minutes Spent Total Time Spent with Patient: Total time spent is greater than 50% in coordination of care (as documented) at patient's floor/unit and/or counseling patient: Coding Level of Care Code 17215 Subseq Hosp Care Lvl 3 Diagnoses Unstable angina I20.0 Asthma J45.909 Hypercholesterolemia E78.00 CAD (coronary artery disease) I25.10 Hypertension I10 Anxiety disorder F41.9
--- NOTE | 2022-05-01 18:27 | Discharge Summary ---
Date of Service May 01, 2022 Admission HPI Per Admitting Provider This is a pleasant 51 yo male with PMH of CAD with stents placed back in 2017, HTN, Hyperlipidemia. Patient reports having chest pain intermittently the past 2 nights. Chest pain was left sided, pressure like in nature non radiating. Occurred at rest and improved with Nitro Prior to this patient has been having intermittent SOB on exertion, that has been gradually worsening. Patient states that this past week he was cutting firewood, and this made him lose his breath (which isn't normal for him). Today, walking to the care made him SOB. GIven his symptoms, he called his cariodlogist, Dr. Mahajan who recommmended him to go to ER Admission Exam (Per Admitting) Constitutional WD/WN, vitals as above Eyes: PERRL, conjunctivae normal, anicteric sclerae ENMT: external ear and nose normal, oropharynx normal Neck: trachea midline, no thyromegaly Respiratory: normal respiratory effort, lungs clear to auscultation Cardiovascular: RRR, no murmur, no edema Gastrointestinal (Abdomen): normal bowel sounds, soft, nontender, no hepatosplenomegaly Musculoskeletal: tenderness to palpation over anrerior right shoulder. Pain on abduction. Neurologic: PERRL, EOMI, accommodation nl, no face palsy, no dysarthria Psychiatric: A+Ox3, euthymic affect Specialty Data Cardiology Left Main (% Stenosis): Normal LAD (% Stenosis): Proximal (Prior stent patent) D1 (% Stenosis): Normal Circumflex (% Stenosis): Normal OM1 (% Stenosis): Normal OM2 (% Stenosis): Normal RCA (% Stenosis): Ostial (30%), Proximal (Stent patent) and Mid (Stent patent) R PDA (% Stenosis): Normal R PL1 (% Stenosis): Normal Diagnostic Physicians Name: Fredrick Bai MD, PhD Recommendations: Medical Therapy and/or Counseling Discharge Data Consultations 04/30/22 12:18 ED Decision to Admit Stat 04/30/22 13:27 Consult Cardiology Routine Procedures Performed Operation Date: 05/01/22 09:30 Actual Procedures p Cath, Left with Cors and Vent - Fredrick Bai MD, PhD s Cineradiography w/Routine Exam - Fredrick Bai MD, PhD Hospital Course (1) Unstable angina: Unstable angina in a 51 yo male with CADP laced on heparin drip. - Hisotryof RCA with XOCHITL and LAD XOCHITL 2016- evalauted today via cardiac cath - continue isosorbide, as well as ACei, statin, Plavix, and asa - was previously on metoprolol however had some dyspnea with this and was trialed off of this 07/29 - Cardiology consultation and evaluation apprecaited As Coronary agniography was clear- ddx remains: GERD, Anxiety, or occupational exposure (2) Asthma: History of asthma, but not on any inhalers - admission CXR with inflammation vs. bronchitis- patient states he normally gets like this during season change - He states he does take OTC zyrtec - continue SHERLYN upon discharge - if above symptoms persist consider pulmonary for PFTS and eval (3) Hypercholesterolemia: resume home meds: rosuvastatin (4) CAD (coronary artery disease): resume home meds: plavix, asa, continue isosorbide (5) Hypertension: resume lisinopril (6) Anxiety disorder: resume home meds Supervising Physician Co-Signing Physician Notes [employer] [employer]PECT[employer] Supervision Note: I personally saw and examined the patient. I verified all mckeon points and agree with ARIA Denny with the following exceptions and/or additions: S-Pt doing well after cath. No further CP, feels well, no complaints O- Vitals reviewed Gen: [AAOx3, NAD] HEENT: [anicteric sclerae, EOMI] CV: [RRR no mgr nl S1S2] Pulm: [CTAB no wcr] Abd: [+BS soft NT ND no masses or hernias] Ext: [no edema, 2+ DP pulses] Skin: [no rashes, warm/dry] Neuro: [full strength throughout] A/P-51 yo male here with atypical chest pain, ruled out for ACS. Could be GI cause-remains on PPI COuld be MSK in nature Stable for dc to home Coding Level of Care Code 82868 OBS Care - Discharge Diagnoses Unstable angina I20.0 Asthma J45.909 Hypercholesterolemia E78.00 CAD (coronary artery disease) I25.10 Hypertension I10 Anxiety disorder F41.9
--- NOTE | 2022-05-01 21:15 | Communication Note ---
Date of Service: May 01, 2022
== END 2022-05-01 23:09 | disposition home or self-care (01) ==
LOC: ED 10:05 → 2S 10:05 → SUATTDRO 12:57 → 2S 15:08